=== PATIENT | male | born 1970 | race Caucasian/White ===

== ENCOUNTER 2020-01-29 16:46 | Emergency (ER) | payer BC ==
[2020-01-29] MEDS ORDERED: Sodium Chloride 0.9% 10 ML Syringe FLUSH PRN (17:08)
[2020-01-29] MEDS ORDERED: methylPREDNISolone Sodium Succinate 125 MG/2 ML SDV IVPUSH ONE (17:08)
[2020-01-29] MEDS ORDERED: Famotidine 20 MG/2 ML SDV IVPUSH ONE (17:09)
--- NOTE | 2020-01-29 18:22 | EDM.PDOC ---
ED HPI GENERAL MEDICAL PROBLEM - General Chief Complaint: Allergic Reaction Stated Complaint: BEE STING/ALLERGIC REACTION Time Seen by Provider: 01/29/20 17:04 Source of Information: Reports: Patient History Limitations: Reports: No Limitations - History of Present Illness INITIAL COMMENTS - FREE TEXT/NARRATIVE: The patient presents with an allergic reaction. He was out working on some equipment and a bee stung him in the forearm. He is allergic. He took an epi pen. He has no rash. He does not feel short of breath but he has some swelling in his throat. He has no chest pain, abdominal pain, nausea or vomiting. Onset: Sudden Duration: Minutes: Location: Reports: Upper Extremity, Right (forearm) Quality: Reports: Burning Severity: Mild Improves with: Reports: None Worsens with: Reports: None Associated Symptoms: Denies: Chest Pain, Cough, Fever/Chills, Headaches, Nausea/Vomiting, Shortness of Breath - Related Data Allergies Allergy/AdvReac Type Severity Reaction Status Date / Time bee venom protein (honey bee) Allergy Difficulty Verified 01/29/20 17:00 Breathing morphine Allergy Rash Verified 01/29/20 17:00 simvastatin [From Zocor] Allergy Renal Verified 01/29/20 17:00 Failure Home Meds: Home Meds Aspirin [Halfprin] 162 mg PO BEDTIME 02/24/15 [History] Fenofibric Acid (Choline) [Trilipix] 135 mg PO DAILY 02/24/15 [History] Fluticasone Propionate [Flovent] 1 spray INH DAILY 02/24/15 [History] Lisinopril 40 mg PO DAILY 02/24/15 [History] Multivitamin [Multivitamins] 1 cap PO DAILY 02/24/15 [History] [place]-3 Fatty Acids [Fish Oil] 1,000 mg PO DAILY 02/24/15 [History] Ubidecarenone [Coq-10] 100 mg PO DAILY 02/24/15 [History] atorvaSTATin [Lipitor] 40 mg PO DAILY 02/24/15 [History] metFORMIN [Glucophage] 1,000 mg PO BID 02/24/15 [History] traMADol [Ultram] 50 mg PO Q6H PRN 02/24/15 [History] Cyclobenzaprine [Flexeril] 1 tab PO DAILY 01/29/20 [History] EPINEPHrine [Epipen 2-Kumar] 0.3 mg IJ Q15M PRN #1 auto.injct 01/29/20 [Rx] Meloxicam [Mobic] 1 tab PO DAILY 01/29/20 [History] Nortriptyline 1 tab PO DAILY 01/29/20 [History] hydroCHLOROthiazide [Hydrochlorothiazide] 1 tab PO DAILY 01/29/20 [History] predniSONE [Prednisone] 40 mg PO DAILY #10 tablet 01/29/20 [Rx] Past Medical History Cardiovascular History: Reports: Hypertension Endocrine/Metabolic History: Reports: Diabetes, Type II - Past Surgical History GI Surgical History: Reports: Cholecystectomy Musculoskeletal Surgical History: Reports: Knee Replacement Social & Family History - Tobacco Use Tobacco Use Status *Q: Never Tobacco User Second Hand Smoke Exposure: No - Caffeine Use Caffeine Use: Reports: None - Recreational Drug Use Recreational Drug Use: No ED ROS ALLERGIC REACTION - Review of Systems Review Of Systems: See Below Constitutional: Reports: No Symptoms HEENT: Reports: No Symptoms Respiratory: Reports: No Symptoms Cardiovascular: Reports: No Symptoms Endocrine: Reports: No Symptoms GI/Abdominal: Reports: No Symptoms : Reports: No Symptoms Musculoskeletal: Reports: Other (sting right forearm) ED EXAM GENERAL NO PERIP PULSE - Physical Exam Exam: See Below Exam Limited By: No Limitations General Appearance: Alert, No Apparent Distress Ears: Normal External Exam Nose: Normal Inspection Throat/Mouth: Normal Inspection, Normal Oropharynx Head: Atraumatic, Normocephalic Neck: Normal Inspection Respiratory/Chest: No Respiratory Distress, Lungs Clear, Normal Breath Sounds Cardiovascular: Regular Rate, Rhythm, No Edema, No Murmur GI/Abdominal: Soft, Non-Tender, No Organomegaly, No Mass Back Exam: Normal Inspection Extremities: Other (Mild erythema to the right forearm) Course - Vital Signs Last Recorded V/S: Last Vital Signs Temp 97.1 F 01/29/20 16:57 Pulse 108 H 01/29/20 16:57 Resp 20 01/29/20 16:57 BP 155/97 H 01/29/20 16:57 Pulse Ox 96 01/29/20 16:57 - Orders/Labs/Meds Orders: Active Orders 24 hr Category Date Time Status Peripheral IV Care [RC] . DIRECTED Care 01/29/20 17:08 Active Sodium Chloride 0.9% [Saline Flush] Med 01/29/20 17:08 Active 10 ml FLUSH ASDIRECTED PRN Peripheral IV Insertion Adult [OM.PC] Routine Oth 01/29/20 17:08 Ordered Medication Orders Sodium Chloride (Saline Flush) 10 ml FLUSH ASDIRECTED PRN PRN Reason: Keep Vein Open Last Admin: 01/29/20 17:13 Dose: 10 ml Documented by: NONI Trimble: Medications Generic Name Dose Route Start Last Admin Trade Name Freq PRN Reason Stop Dose Admin Sodium Chloride 10 ml 01/29/20 17:08 01/29/20 17:13 Saline Flush FLUSH 10 ml ASDIRECTED PRN Administration Keep Vein Open Discontinued Medications Generic Name Dose Route Start Last Admin Trade Name Freq PRN Reason Stop Dose Admin Famotidine 20 mg 01/29/20 17:09 01/29/20 17:13 Pepcid IVPUSH 01/29/20 17:10 20 mg ONETIME ONE Administration Methylprednisolone Sodium Succinate 125 mg 01/29/20 17:08 01/29/20 17:13 Solu-Medrol IVPUSH 01/29/20 17:09 125 mg ONETIME ONE Administration - Re-Assessments/Exams Free Text/Narrative Re-Assessment/Exam: 01/29/20 18:21 I ordered an IV saline lock, solu-medrol 125mg IV, and pepcid 20mg IV. I observed him for awhile and he is doing good. I will discharge him home with some prednisone. I will get him a refill on the epipen. Departure - Departure Time of Disposition: 18:25 Disposition: Home, Self-Care 01 Condition: Good Clinical Impression: Bee sting allergy Allergic reaction Qualifiers: Encounter type: initial encounter Qualified Code(s): T78.40XA - Allergy, unspecified, initial encounter - Discharge Information *PRESCRIPTION DRUG MONITORING PROGRAM REVIEWED*: Not Applicable *COPY OF PRESCRIPTION DRUG MONITORING REPORT IN PATIENT KSENIA: Not Applicable Prescriptions: EPINEPHrine [Epipen 2-Kumar] 0.3 mg IJ Q15M PRN #1 auto.injct PRN Reason: Allergies predniSONE [Prednisone] 40 mg PO DAILY #10 tablet Referrals: Elton Mckay MD [Primary Care Provider] - Additional Instructions: Take the prednisone daily for 5 days. Take pepcid daily for 5 days. Take benadryl 50mg every 6 hours as needed for any allergy symptoms. Please return if you are worse. Sepsis Event Note (ED) - Evaluation Sepsis Screening Result: No Definite Risk - Focused Exam Vital Signs: Vital Signs Temp Pulse Resp BP Pulse Ox 01/29/20 16:57 97.1 F 108 H 20 155/97 H 96 - My Orders Last 24 Hours: My Active Orders 01/29/20 17:08 Peripheral IV Care [RC] . DIRECTED Sodium Chloride 0.9% [Saline Flush] 10 ml FLUSH ASDIRECTED PRN Peripheral IV Insertion Adult [OM.PC] Routine - Assessment/Plan Last 24 Hours: My Active Orders 01/29/20 17:08 Peripheral IV Care [RC] . DIRECTED Sodium Chloride 0.9% [Saline Flush] 10 ml FLUSH ASDIRECTED PRN Peripheral IV Insertion Adult [OM.PC] Routine
[2020-01-29 19:35] VITALS: BP 124/86; PULSE 71
== END 2020-01-29 18:34 | disposition home or self-care (01) ==
LOC: JD.ED 16:46
DX: T63.441A Toxic effect of venom of bees, accidental (unintentional), initial encounter (principal); I10 Essential (primary) hypertension; E11.9 Type 2 diabetes mellitus without complications; Z88.5 Allergy status to narcotic agent; Z88.8 Allergy status to other drugs, medicaments and biological substances; Z90.49 Acquired absence of other specified parts of digestive tract; Z79.84 Long term (current) use of oral hypoglycemic drugs; Z79.82 Long term (current) use of aspirin; Z79.899 Other long term (current) drug therapy
CPT/HCPCS: 96374; 96375; 99282; J2930; J3490; 99283

== ENCOUNTER 2021-01-18 14:54 | Emergency (ER) | payer BC ==
[2021-01-18] MEDS ORDERED: diphenhydrAMINE 50 MG/ML SDV IVPUSH PRN (15:39)
[2021-01-18] MEDS ORDERED: Famotidine 20 MG/2 ML SDV IVPUSH PRN (15:39)
[2021-01-18] MEDS ORDERED: methylPREDNISolone Sodium Succinate 125 MG/2 ML SDV IVPUSH PRN (15:39)
[2021-01-18] MEDS ORDERED: EPINEPHrine 1 MG/ML SDV IM PRN (15:39)
[2021-01-18] MEDS ORDERED: Dextrose 5%-0.9% NaCl 1,000 ML IV SCH (15:45)
[2021-01-18] MEDS ORDERED: Sodium Chloride 0.9% 10 ML Syringe FLUSH SCH (15:45)
--- NOTE | 2021-01-18 15:49 | EDM.PDOC ---
ED HPI GENERAL MEDICAL PROBLEM - General Chief Complaint: Respiratory Problem Stated Complaint: COVID +/LOW O2 Time Seen by Provider: 01/18/21 15:44 Source of Information: Reports: Patient History Limitations: Reports: No Limitations - History of Present Illness INITIAL COMMENTS - FREE TEXT/NARRATIVE: 50-year-old male presents to the ED with known COVID-19 illness with his pulse oximeter telling him that his O2 sats are as low as 88 and 70% at home. O2 sats here fluctuate between 93 and 96% in the ED. Patient states he started coughing on January 08 developed fever chills headache and increasing cough on January 14. He tested positive for COVID-19 illness that day. Still has nasal congestion and some loss of smell. Moderate sore throat. Harsh paroxysmal co ugh intermittently productive of white sputum. No nausea or vomiting and no diarrhea. Patient has a history of type 2 diabetes. Hypertension and hyper triglyceridemia. Continues to use Motrin as needed for fever relief. Onset: Gradual Onset Date: 01/08/21 (Started with cough.) Duration: Day(s):, Getting Worse Location: Reports: Head ( sputum.), Face ( Headache sore throat), Chest (Intermittently bringing up some white), Generalized (Generalized myalgia and persistent fever) Quality: Reports: Ache (Generalized body aches particular in neck low back muscles and thigh muscles.) Severity: Moderate Improves with: Reports: None Worsens with: Reports: Movement (Walking makes him more short of breath.) Context: Denies: Activity, Exercise, Lifting, Sick Contact, Trauma, Other Associated Symptoms: Reports: Chest Pain, Cough (From coughing.), cough w sputum (White sputum intermittently), Diaphoresis, Fever/Chills, Headaches, Loss of Appetite, Malaise, Shortness of Breath, Weakness, Other (Decreased appetite). Denies: Confusion, Nausea/Vomiting, Rash, Seizure, Syncope Treatments ALLIANCES CONSULTANT: Reports: Acetaminophen, NSAIDS (Motrin intermittently) Headache Pain Score (Numeric/FACES): 8 - Related Data Allergies Allergy/AdvReac Type Severity Reaction Status Date / Time bee venom protein (honey bee) Allergy Difficulty Verified 01/18/21 15:19 Breathing morphine Allergy Rash Verified 01/18/21 15:19 simvastatin [From Zocor] Allergy Renal Verified 01/18/21 15:19 Failure Home Meds: Home Meds Aspirin [Halfprin] 162 mg PO BEDTIME 02/24/15 [History] Fenofibric Acid (Choline) [Trilipix] 135 mg PO DAILY 02/24/15 [History] Fluticasone Propionate [Flovent] 1 spray INH DAILY 02/24/15 [History] Lisinopril 40 mg PO DAILY 02/24/15 [History] Multivitamin [Multivitamins] 1 cap PO DAILY 02/24/15 [History] [place]-3 Fatty Acids [Fish Oil] 1,000 mg PO DAILY 02/24/15 [History] Ubidecarenone [Coq-10] 100 mg PO DAILY 02/24/15 [History] atorvaSTATin [Lipitor] 40 mg PO DAILY 02/24/15 [History] metFORMIN [Glucophage] 1,000 mg PO BID 02/24/15 [History] traMADol [Ultram] 50 mg PO Q6H PRN 02/24/15 [History] Cyclobenzaprine [Flexeril] 1 tab PO DAILY 01/29/20 [History] EPINEPHrine [Epipen 2-Kumar] 0.3 mg IJ Q15M PRN #1 auto.injct 01/29/20 [Rx] Meloxicam [Mobic] 1 tab PO DAILY 01/29/20 [History] Nortriptyline 1 tab PO DAILY 01/29/20 [History] hydroCHLOROthiazide [Hydrochlorothiazide] 1 tab PO DAILY 01/29/20 [History] predniSONE [Prednisone] 40 mg PO DAILY #10 tablet 01/29/20 [Rx] dexAMETHasone [Decadron] 6 mg PO BID #10 tablet 01/18/21 [Rx] Past Medical History HEENT History: Reports: Allergic Rhinitis Cardiovascular History: Reports: High Cholesterol, Hypertension, Other (See Below) (Hypertriglyceridemia) Endocrine/Metabolic History: Reports: Diabetes, Type II (Controlled with diet and Metformin), Obesity/BMI 30+ - Past Surgical History GI Surgical History: Reports: Cholecystectomy Musculoskeletal Surgical History: Reports: Knee Replacement Social & Family History - Caffeine Use Caffeine Use: Reports: None - Living Situation & Occupation Living situation: Reports: Occupation: Employed ED ROS GENERAL - Review of Systems Review Of Systems: See Below Constitutional: Reports: Fever, Chills, Malaise, Weakness, Fatigue, Decreased Appetite, Weight Loss HEENT: Reports: Sinus Problem (Chronic allergic rhinitis with sinus congestion at present with decreased sense of smell and taste), Throat Pain Respiratory: Reports: Shortness of Breath, Cough, Sputum. Denies: Wheezing, Pleuritic Chest Pain, Hemoptysis, Other (White sputum production) Cardiovascular: Reports: No Symptoms, Chest Pain (Central chest discomfort from coughing), Blood Pressure Problem. Denies: Claudication, Edema, Lightheadedness, Orthopnea Endocrine: Reports: Fatigue GI/Abdominal: Reports: Decreased Appetite : Reports: No Symptoms Musculoskeletal: Reports: Muscle Pain (Generalized myalgia.) Skin: Reports: No Symptoms Neurological: Reports: Headache, Difficulty Walking (Due to weakness), Weakness. Denies: Confusion, Dizziness, Syncope Psychiatric: Reports: No Symptoms Hematologic/Lymphatic: Reports: No Symptoms Immunologic: Reports: No Symptoms ED EXAM, GENERAL - Physical Exam Exam: See Below Exam Limited By: No Limitations General Appearance: Alert, WD/WN, No Apparent Distress, Other (Patient does feel very warm to palpation. Temperature is 37.6 degrees. Heart rate is 87 and sinus. Respiratory was 24/min with O2 sats anywhere from 93 to 96% when I was in the room. Blood pressure elevated at 144 106) Eye Exam: Bilateral Eye: Normal Inspection, PERRL (No blepharal pallor or scleral icterus) Ears: Normal TMs Throat/Mouth: Normal Inspection, Normal Lips, Normal Teeth, Normal Oropharynx Head: Atraumatic, Normocephalic Neck: Normal Inspection, Supple, Non-Tender, Full Range of Motion. No: Lymphadenopathy (L), Lymphadenopathy (R) Respiratory/Chest: No Respiratory Distress, No Accessory Muscle Use, Rhonchi (Yrn left upper lobe and both lower lobes on exam). No: Rales, Wheezing Cardiovascular: Normal Peripheral Pulses, Regular Rate, Rhythm, No Edema, No Gallop, No Murmur, No Rub Peripheral Pulses: 2+: Posterior Tibial (L), Posterior Tibial (R), Dorsalis Pedis (L), Dorsalis Pedis (R), 3+: Carotid (L), Carotid (R) GI/Abdominal: Normal Bowel Sounds, Soft, Non-Tender, No Organomegaly, No Distention, No Abnormal Bruit Extremities: Normal Inspection, Normal Range of Motion, Non-Tender, No Pedal Edema Neurological: Alert, Oriented, CN II-XII Intact, Normal Cognition, No Motor/Sensory Deficits Psychiatric: Normal Mood, Other Skin Exam: Warm (Appears ill.), Dry, Intact, Normal Color, No Rash #1 Interpretation EKG Date: 01/18/21 Time: 16:43 Rhythm: NSR Rate (Beats/Min): 87 [place]: Normal P-Wave: Present (T wave is inverted in lead III but is upright in all of the leads unclear significance) QRS: Other (Mildly decreased voltage precordial leads not able to use lead V2 for interpretation due to artifact of the baseline) ST-T: Normal QT: Normal EKG Interpretation Comments: Essentially normal ECG Course - Vital Signs Last Recorded V/S: Last Vital Signs Temp 36.9 C 01/18/21 15:23 Pulse 86 01/18/21 17:07 Resp 24 H 01/18/21 17:07 BP 124/79 01/18/21 17:07 Pulse Ox 91 L 01/18/21 17:07 - Orders/Labs/Meds Orders: Active Orders 24 hr Category Date Time Status Vital Signs [RC] Q15M Care 01/18/21 15:40 Active Dextrose 5%-0.9% NaCl [Dextrose 5%-Normal Saline] 1,000 Med 01/18/21 15:45 Active ml IV ASDIRECTED EPINEPHrine [Adrenalin] Med 01/18/21 15:39 Active 0.3 mg IM ASDIRECTED PRN Famotidine [Pepcid] Med 01/18/21 15:39 Active 20 mg IVPUSH ASDIRECTED PRN Sodium Chloride 0.9% [Saline Flush] Med 01/18/21 15:45 Active 30 ml FLUSH ASDIRECTED diphenhydrAMINE [Benadryl] Med 01/18/21 15:39 Active 50 mg IVPUSH ASDIRECTED PRN methylPREDNISolone Sod Succ [Solu-MEDROL] Med 01/18/21 15:39 Active 125 mg IVPUSH ASDIRECTED PRN Medication Orders Diphenhydramine HCl (Diphenhydramine 50 Mg/Ml Sdv) 50 mg IVPUSH ASDIRECTED PRN PRN Reason: hypersensitivity reaction Epinephrine HCl (Epinephrine 1 Mg/Ml Sdv) 0.3 mg IM ASDIRECTED PRN PRN Reason: hypersensitivity reaction Famotidine (Famotidine 20 Mg/2 Ml Sdv) 20 mg IVPUSH ASDIRECTED PRN PRN Reason: hypersensitivity reaction Dextrose/Sodium Chloride (Dextrose 5%-Normal Saline) 1,000 mls @ 250 mls/hr IV ASDIRECTED TRACI Methylprednisolone Sodium Succinate (Methylprednisolone Sodium Succinate 125 Mg/2 Ml Sdv) 125 mg IVPUSH ASDIRECTED PRN PRN Reason: hypersensitivity reaction Sodium Chloride (Sodium Chloride 0.9% 10 Ml Syringe) 30 ml FLUSH ASDIRECTED [facility] Labs: Laboratory Tests 01/18/21 01/18/21 01/18/21 Range/Units 16:05 16:05 16:05 WBC 4.27 (4.23-9.07) K/mm3 RBC 5.45 (4.63-6.08) M/mm3 Hgb 13.5 L D (13.7-17.5) gm/dl Hct 42.2 (40.1-51.0) % MCV 77.4 L (79.0-92.2) fl MCH 24.8 L (25.7-32.2) pg MCHC 32.0 L (32.2-35.5) g/dl RDW Std Deviation 39.0 (35.1-43.9) fL Plt Count 247 D (163-337) K/mm3 MPV 9.0 L (9.4-12.3) fl Neut % (Auto) 66.5 (34.0-67.9) % Lymph % (Auto) 18.5 L (21.8-53.1) % [place] % (Auto) 14.3 H (5.3-12.2) % Eos % (Auto) 0 L (0.8-7.0) Baso % (Auto) 0.5 (0.1-1.2) % Neut # (Auto) 2.84 (1.78-5.38) K/mm3 Lymph # (Auto) 0.79 L (1.32-3.57) K/mm3 [place] # (Auto) 0.61 (0.30-0.82) K/mm3 Eos # (Auto) 0.00 L (0.04-0.54) K/mm3 Baso # (Auto) 0.02 (0.01-0.08) K/mm3 Sodium 133 L (136-145) mEq/L Potassium 3.7 (3.5-5.1) mEq/L Chloride 97 L (98-107) mEq/L Carbon Dioxide 23 (21-32) mEq/L Anion Gap 16.7 H (5-15) BUN 25 H (7-18) mg/dL Creatinine 2.0 H (0.7-1.3) mg/dL Est Cr Clr Drug Dosing 48.50 mL/min Estimated GFR (MDRD) 36 (>60) mL/min BUN/Creatinine Ratio 12.5 L (14-18) Glucose 113 H (70-99) mg/dL Calcium 8.7 (8.5-10.1) mg/dL Magnesium 1.7 L (1.8-2.4) mg/dL Total Bilirubin 0.4 (0.2-1.0) mg/dL AST 73 H (15-37) U/L ALT 92 H (16-63) U/L Alkaline Phosphatase 93 (46-116) U/L Lactate Dehydrogenase 197 (85-227) U/L Troponin I < 0.017 (0.00-0.056) ng/mL C-Reactive Protein 6.0 H* (<1.0) mg/dL NT-Pro-B Natriuret Pep 11 (0-125) pg/mL Total Protein 7.3 (6.4-8.2) g/dl Albumin 3.5 (3.4-5.0) g/dl Globulin 3.8 gm/dL Albumin/Globulin Ratio 0.9 L (1-2) Meds: Medications Generic Name Dose Route Start Last Admin Trade Name Freq PRN Reason Stop Dose Admin Diphenhydramine HCl 50 mg 01/18/21 15:39 Diphenhydramine 50 Mg/Ml Sdv IVPUSH ASDIRECTED PRN hypersensitivity reaction Epinephrine HCl 0.3 mg 01/18/21 15:39 Epinephrine 1 Mg/Ml Sdv IM ASDIRECTED PRN hypersensitivity reaction Famotidine 20 mg 01/18/21 15:39 Famotidine 20 Mg/2 Ml Sdv IVPUSH ASDIRECTED PRN hypersensitivity reaction Dextrose/Sodium Chloride 1,000 mls @ 250 mls/hr 01/18/21 15:45 Dextrose 5%-Normal Saline IV ASDIRECTED TRACI Methylprednisolone Sodium Succinate 125 mg 01/18/21 15:39 Methylprednisolone Sodium Succinate 125 Mg/2 Ml Sdv IVPUSH ASDIRECTED PRN hypersensitivity reaction Sodium Chloride 30 ml 01/18/21 15:45 Sodium Chloride 0.9% 10 Ml Syringe FLUSH ASDIRECTED TRACI Discontinued Medications Generic Name Dose Route Start Last Admin Trade Name Jaimee PRN Reason Stop Dose Admin Acetaminophen 975 mg 01/18/21 15:57 01/18/21 16:23 Acetaminophen 325 Mg Tab PO 01/18/21 15:58 975 mg ONETIME ONE Administration Dexamethasone 6 mg 01/18/21 17:08 01/18/21 17:28 Dexamethasone 10 Mg/Ml Sdv IVPUSH 01/18/21 17:09 6 mg ONETIME ONE Administration CASIRIVIMAB/IMDEVIMAB 10 ml/ 110 mls @ 220 mls/hr 01/18/21 15:39 01/18/21 16:50 Sodium Chloride IV 01/18/21 16:08 220 mls/hr ONETIME ONE Administration - Radiology Interpretation Free Text/Narrative:: 50-year-old male presents to the ED with known COVID-19 illness diagnosed yesterday. He started with a cough last Wednesday, January 08 but developed fever chills headache and myalgia on Wednesday, January 12 and . Testing done yesterday was positive for COVID-19. This makes him about day 8 of illness. He is unvaccinated. He has a pulse oximeter which is reading as low as 70% at home. We found this to be inaccurate when compared to ours. His O2 sats to range from 91 to 96% in the ED. On exam he has rhonchi left upper lobe and both posterior lower lobes of his lungs. Plan IV D5 normal saline at 250 mils an hour. He is a candidate for monoclonal antibody therapy and will in fact receive Regeneron after we spoke about it. I spoke to him and his and provided information to read about the Regeneron by giving him the fax sheet. He is aware the therapy has been approved by an emergency use authorization process and but has not been fully FDA reviewed or approved. Shared personal risk from therapy including allergic reaction including anaphylaxis which could be fatal. I discussed there are other potential treatment options that are currently not FDA approved to treat COVID-19 as well patient seem to already be informed about monoclonal antibody therapy as his father was recently seen through the ED with COVID-19 illness but refused or declined monoclonal antibody therapy. The patient has decided to undergo infusion of monoclonal antibodies for himself Mr. Adi Joyner. Plan patient will have a chest x-ray performed as well as routine labs. Will be given Tylenol 975 mg p.o. for fever relief - Re-Assessments/Exams Free Text/Narrative Re-Assessment/Exam: 01/18/21 16:40 White count is 4.27. The auto differential shows 66.5% neutrophils. Hemoglobin is 13.5 with hematocrit of 42.2. MCV is slightly low at 77.4 suggesting mild iron deficiency. Platelet count is 247,000. Sodium is 133 with a potassium of 3.7. Chloride 97 with a bicarb of 23. Anion gap is 16.7. BUN is 25 with a creatinine of 2.0. GFR is 36 a stage IIIb renal insufficiency. Glucose is 113 calcium is 8.7 magnesium slightly low at 1.7. Bilirubin is 0.4 AST mildly elevated at 73 and ALT of 92. Alkaline phosphatase is 93. LDH is 197. Troponin I is less than 0.017. C-reactive protein is 6.0 BNP is 11 with a total protein of 7.3 and an albumin fraction of 3.5 01/18/21 16:59: Chest x-ray done portably does not reveal any pneumonia. There are multiple small pulmonary nodules in the right perihilar area of unclear significance. Patient is tolerating monoclonal antibody infusion with no problems at this time. He will be done approximately 17:20 hrs. He will be given a dose of dexamethasone 6 mg IV as well. Of note the patient has stage IIIb renal insufficiency possibly being aggravated by current medications hydrochlorothiazide, Metformin, meloxicam, and lisinopril if his med list is current. Advised follow-up with his primary care physician in this regard Departure - Departure Time of Disposition: 18:07 Disposition: Home, Self-Care 01 Condition: Fair Clinical Impression: COVID-19 determined by clinical diagnostic criteria Chronic renal insufficiency, stage III (moderate) Qualifiers: Chronic kidney disease stage 3 subtype: stage 3b (GFR 30-44) Qualified Code(s): N18.32 - Chronic kidney disease, stage 3b - Discharge Information *PRESCRIPTION DRUG MONITORING PROGRAM REVIEWED*: Not Applicable *COPY OF PRESCRIPTION DRUG MONITORING REPORT IN PATIENT KSENIA: Not Applicable Prescriptions: dexAMETHasone [Decadron] 6 mg PO BID #10 tablet Instructions: Prone Position Therapy, 10 Things You Can Do to Manage Your COVID-19 Symptoms at Home - CDC (10/11/2020), COVID-19: How to Protect Yourself and Others - CDC, Symptoms of COVID-19 - [facility] (05/20/2020), COVID-19: Quarantine vs. Isolation - [facility] (03/14/2020) Referrals: Elton Mckay MD [Primary Care Provider] - Forms: ED Department Discharge, ED Return to Work/School Form Additional Instructions: Evaluation in the emergency room today in regards to worsening COVID-19 illness with oxygen levels ranging from 91 to 96% on pulse oximetry. Portable chest x- ray does not reveal any signs of COVID-19 pneumonia at this time. Lab tests are negative for any significant inflammation disorders such as blood clots in the lung or heart issues related to COVID-19 illness. He received dual monoclonal antibody therapy while in the emergency room without any problems occurring as far as adverse effects. This gives you immediate antibodies to the COVID-19 virus and hopefully starts to make you feel better within the next 24 to 36 hours. Suggest use of dexamethasone tablet 6 mg twice daily usually with breakfast and supper for 5 days starting tomorrow morning .First dose was given in the emergency room while you were here today. Of note steroids will elevate your blood sugars if you are checking them but they will return to normal within about 3 days of stopping the dexamethasone. Provided 8 new pulse oximeter and continue to monitor your blood oxygen levels 4 5 times daily. If they stay around 88% for 2 consecutive hours it would be time to come to the emergency room. You are considered contagious to others for a minimum of 10 days and likely 12 days after symptoms started I would suggest being off of work all next week with tentative return to work January 27 Sepsis Event Note (ED) - Focused Exam Vital Signs: Vital Signs Temp Pulse Resp BP Pulse Ox 01/18/21 17:07 86 24 H 124/79 91 L 01/18/21 15:23 36.9 C 01/18/21 15:09 87 144/106 H 91 L - My Orders Last 24 Hours: My Active Orders 01/18/21 15:39 EPINEPHrine [Adrenalin] 0.3 mg IM ASDIRECTED PRN Famotidine [Pepcid] 20 mg IVPUSH ASDIRECTED PRN diphenhydrAMINE [Benadryl] 50 mg IVPUSH ASDIRECTED PRN methylPREDNISolone Sod Succ [Solu-MEDROL] 125 mg IVPUSH ASDIRECTED PRN 01/18/21 15:40 Vital Signs [RC] Q15M 01/18/21 15:45 Dextrose 5%-0.9% NaCl [Dextrose 5%-Normal Saline] 1,000 ml IV ASDIRECTED Sodium Chloride 0.9% [Saline Flush] 30 ml FLUSH ASDIRECTED - Assessment/Plan Last 24 Hours: My Active Orders 01/18/21 15:39 EPINEPHrine [Adrenalin] 0.3 mg IM ASDIRECTED PRN Famotidine [Pepcid] 20 mg IVPUSH ASDIRECTED PRN diphenhydrAMINE [Benadryl] 50 mg IVPUSH ASDIRECTED PRN methylPREDNISolone Sod Succ [Solu-MEDROL] 125 mg IVPUSH ASDIRECTED PRN 01/18/21 15:40 Vital Signs [RC] Q15M 01/18/21 15:45 Dextrose 5%-0.9% NaCl [Dextrose 5%-Normal Saline] 1,000 ml IV ASDIRECTED Sodium Chloride 0.9% [Saline Flush] 30 ml FLUSH ASDIRECTED
[2021-01-18] MEDS ORDERED: Acetaminophen 325 MG Tab PO ONE (15:57)
[2021-01-18] MEDS ORDERED: Dexamethasone 10 MG/ML SDV IVPUSH ONE (17:08)
[2021-01-18 17:10] VITALS: BP 124/79; PULSE 86
--- NOTE | 2021-01-18 17:59 | CR ---
Chest: Portable view of the chest was obtained. Comparison: No prior chest imaging is available. Heart size and mediastinum are normal. Lungs are clear with no acute parenchymal change. No acute osseous abnormality is appreciated. Impression: 1. Nothing acute is seen on portable chest x-ray. Diagnostic code #1
== END 2021-01-18 18:52 | disposition home or self-care (01) ==
LOC: JD.ED 14:54
DX: U07.1 COVID-19 (principal); E78.00 Pure hypercholesterolemia, unspecified; I12.9 Hypertensive chronic kidney disease with stage 1 through stage 4 chronic kidney disease, or unspecified chronic kidney disease; E11.22 Type 2 diabetes mellitus with diabetic chronic kidney disease; N18.32 Chronic kidney disease, stage 3b; Z91.030 Bee allergy status; Z88.5 Allergy status to narcotic agent; Z88.8 Allergy status to other drugs, medicaments and biological substances; Z79.82 Long term (current) use of aspirin; Z79.899 Other long term (current) drug therapy; Z79.84 Long term (current) use of oral hypoglycemic drugs
CPT/HCPCS: 36415; 71045; 80053; 83615; 83735; 83880; 84484; 85025; 86140; 93005; 96374; 99284; A9270; J1100; M0243; Q0243

== ENCOUNTER 2021-09-11 22:57 | Emergency (ER) | payer BC ==
[2021-09-12] MEDS ORDERED: Sodium Chloride 0.9% 1,000 ML IV ONE (00:08)
[2021-09-12 01:53] VITALS: BP 117/68; PULSE 79
== END 2021-09-12 01:50 | disposition home or self-care (01) ==
LOC: JD.ED 22:57
DX: R55 Syncope and collapse (principal); E11.9 Type 2 diabetes mellitus without complications; E66.9 Obesity, unspecified; I10 Essential (primary) hypertension; E78.00 Pure hypercholesterolemia, unspecified; Z91.030 Bee allergy status; Z79.82 Long term (current) use of aspirin; Z79.4 Long term (current) use of insulin; Z88.5 Allergy status to narcotic agent; Z79.899 Other long term (current) drug therapy; Z79.84 Long term (current) use of oral hypoglycemic drugs; Z68.34 Body mass index [BMI] 34.0-34.9, adult
CPT/HCPCS: 96360; 99283; J7030

== ENCOUNTER 2021-11-19 16:38 | Emergency (ER) | payer BC ==
[2021-11-19 16:47] VITALS: BP 163/94; PULSE 81
[2021-11-19] MEDS ORDERED: EPINEPHrine 1 MG/ML SDV IM ONE (16:58)
[2021-11-19] MEDS ORDERED: EPINEPHrine 1 MG/ML SDV ONE (16:59)
[2021-11-19] MEDS ORDERED: methylPREDNISolone Sodium Succinate 125 MG/2 ML SDV IVPUSH ONE (16:59)
[2021-11-19] MEDS ORDERED: diphenhydrAMINE 50 MG/ML SDV IVPUSH ONE (17:00)
[2021-11-19] MEDS ORDERED: Famotidine 20 MG/2 ML SDV IVPUSH ONE (17:00)
== END 2021-11-19 19:17 | disposition home or self-care (01) ==
LOC: JD.ED 16:38
DX: T63.441A Toxic effect of venom of bees, accidental (unintentional), initial encounter (principal); I10 Essential (primary) hypertension; E11.9 Type 2 diabetes mellitus without complications; E66.9 Obesity, unspecified; Z68.34 Body mass index [BMI] 34.0-34.9, adult; Z91.030 Bee allergy status; Z88.6 Allergy status to analgesic agent; Z88.8 Allergy status to other drugs, medicaments and biological substances; Z79.899 Other long term (current) drug therapy; Z79.82 Long term (current) use of aspirin; Z79.4 Long term (current) use of insulin; Z79.84 Long term (current) use of oral hypoglycemic drugs; Z86.16 Personal history of COVID-19; Z90.49 Acquired absence of other specified parts of digestive tract
CPT/HCPCS: 96372; 96374; 96375; 99282; J0171; J1200; J2930; J3490

== ENCOUNTER 2023-05-11 10:09 | Emergency (ER) | payer BC ==
[2023-05-11] MEDS: Sodium Chloride 0.9% 1,000 ML IV ONE (11:19)
[2023-05-11] MEDS: Metoclopramide 10 MG/2 ML SDV IVPUSH ONE (11:19)
[2023-05-11] MEDS: Ketorolac 30 MG/ML SDV IVPUSH ONE (11:20)
[2023-05-11] MEDS: diphenhydrAMINE 50 MG/ML SDV IVPUSH ONE (11:20)
[2023-05-11] MEDS: Sodium Chloride 0.9% 10 ML Syringe FLUSH PRN (11:21)
[2023-05-11 12:22] VITALS: BP 150/90; PULSE 84
== END 2023-05-11 12:23 | disposition home or self-care (01) ==
LOC: JD.ED 10:09
DX: G43.909 Migraine, unspecified, not intractable, without status migrainosus (principal); I10 Essential (primary) hypertension; E78.00 Pure hypercholesterolemia, unspecified; E11.9 Type 2 diabetes mellitus without complications; E66.9 Obesity, unspecified; Z68.37 Body mass index [BMI] 37.0-37.9, adult; Z91.030 Bee allergy status; Z88.5 Allergy status to narcotic agent; Z88.1 Allergy status to other antibiotic agents; Z86.16 Personal history of COVID-19; Z79.4 Long term (current) use of insulin; Z79.85 Long-term (current) use of injectable non-insulin antidiabetic drugs; Z79.84 Long term (current) use of oral hypoglycemic drugs; Z79.82 Long term (current) use of aspirin; Z79.899 Other long term (current) drug therapy
CPT/HCPCS: 96374; 96375; 99283; J1200; J1885; J2765; J3490; J7030